=== PATIENT | male | born 1950 | race Caucasian/White ===

== ENCOUNTER 2017-07-17 09:34 | Day surgery (SDC) | payer OTHER ==
[2017-07-17] MEDS ORDERED: D5 LR 1000 ML 1,000 ML IV ONE (09:59)
[2017-07-17] MEDS ORDERED: DIPRIVAN VIAL 20 ML ONE (11:32)
[2017-07-17 13:55] VITALS: BP 118/78
== END 2017-07-17 12:18 | disposition home or self-care (01) ==
LOC: SURG1 09:34
PROVIDERS: ATTEND Internal Medicine Gastroenterology
PROC: 0DJD8ZZ Inspection of Lower Intestinal Tract, Via Natural or Artificial Opening Endoscopic (ICD-10-PCS; principal; 2017-07-17 11:30)
DX: Z12.11 Encounter for screening for malignant neoplasm of colon (principal); K57.30 Diverticulosis of large intestine without perforation or abscess without bleeding; K64.0 First degree hemorrhoids
CPT/HCPCS: A4217; J3490; J7120

== ENCOUNTER 2021-10-26 16:41 | Observation (INO) ==
[2021-10-26 19:51] LABS: BASOPHILS # (AUTO) 0.2 X10^3/uL (0.0-0.1); BASOPHILS % (AUTO) 2.3 % (0.2-1.0); EOSINOPHILS # (AUTO) 0.2 x10^3/uL (0.0-0.2); EOSINOPHILS % (AUTO) 2.9 % (0.9-2.9); HEMATOCRIT 51.4 % (42.0-54.0); HEMOGLOBIN 17.5 g/dL (13.5-18.0); LYMPHOCYTES # (AUTO) 1.4 X10^3/uL (1.3-2.9); LYMPHOCYTES % (AUTO) 19.5 % (21.0-51.0); MEAN CORPUSCULAR HEMOGLOBIN 32.7 pg (27.0-34.0); MEAN CORPUSCULAR VOLUME 96.2 fL (80.0-100.0); MEAN PLATELET VOLUME 7.6 fL (7.4-11.0); MONOCYTES # (AUTO) 0.7 x10^3/uL (0.3-0.8); MONOCYTES % (AUTO) 9.7 % (0.0-13.0); NEUTROPHILS # (AUTO) 4.9 x10^3/uL (2.2-4.8); NEUTROPHILS % (AUTO) 65.6 % (42.0-75.0); RED BLOOD COUNT 5.35 X10^6/uL (4.7-6.0); RED CELL DISTRIBUTION WIDTH 13.5 % (11.6-16.5); WHITE BLOOD COUNT 7.4 X10^3/uL (3.6-10.0)
[2021-10-26 19:56] LABS: ERYTHROCYTE SEDIMENTATION RATE 16 MM/HOUR (0-15)
[2021-10-26 20:03] LABS: ALANINE AMINOTRANSFERASE 25 Units/L (12-78); ALBUMIN 3.8 g/dL (3.4-5.0); ALKALINE PHOSPHATASE 82 Units/L (46-116); ASPARTATE AMINO TRANSFERASE 20 Units/L (15-37); BLOOD UREA NITROGEN 27 mg/dL (7-18); CALCIUM 8.8 mg/dL (8.5-10.1); CARBON DIOXIDE 28.7 mmol/L (21-32); CHLORIDE 104 mmol/L (98-107); COR NA(FOR HYPERGLY) 140 mmol/L (136-145); CREATININE 1.27 mg/dL (0.70-1.30); SODIUM 140 mmol/L (136-145); TOTAL PROTEIN 7.1 g/dL (6.4-8.2); eGFR NON BLACK RACES 59 (>60)
[2021-10-26 20:18] LABS: BILIRUBIN,URINE NEGATIVE (NEGATIVE); BLOOD/HEMOGLOBIN,URINE 1+ (NEGATIVE); GLUCOSE, URINE NEGATIVE (NEGATIVE); KETONES,URINE NEGATIVE (NEGATIVE); LEUKOCYTE ESTERASE ,URINE NEGATIVE (NEGATIVE); NITRITES,URINE NEGATIVE (NEGATIVE); PH,URINE 6.5 (5.0 - 8.0); PROTEIN,URINE NEGATIVE (NEGATIVE); UROBILINOGEN,URINE NORMAL (NORMAL)
[2021-10-26 20:28] LABS: APPEARANCE,URINE CLEAR (CLEAR); COLOR,URINE YELLOW (YELLOW)
[2021-10-26 20:29] LABS: BACTERIA,URINE NEGATIVE /HPF (NEGATIVE); RBC,URINE 0-2 /HPF (0-3); SQUAMOUS EPITHELIAL CELL,UR RARE /HPF (NEGATIVE)
[2021-10-26 20:30] LABS: BAND NEUTROPHILS % 2 % (0-10); PLATELET MORPHOLOGY COMMENT NORMAL (NORMAL); SMUDGE CELLS FEW
[2021-10-26] MEDS: HEPARIN SODIUM IN D5W 25,000 UNITS/500 ML BAG IV PRN (20:30)
[2021-10-26] MEDS: NS 1,000 ML IV 1,000 ML IV SCH (20:33)
[2021-10-26] MEDS ORDERED: HEPARIN SODIUM INJ 5000 UNITS IVP ONE ×2 (21:15→22:00)
[2021-10-27 01:04] VITALS: BMI 30.2
[2021-10-27] MEDS: XANAX PO SCH ×2 (01:35→22:48)
[2021-10-27 02:44] LABS: BASOPHILS # (AUTO) 0.1 X10^3/uL (0.0-0.1); BASOPHILS % (AUTO) 0.9 % (0.2-1.0); EOSINOPHILS # (AUTO) 0.2 x10^3/uL (0.0-0.2); EOSINOPHILS % (AUTO) 3.3 % (0.9-2.9); HEMATOCRIT 48.9 % (42.0-54.0); HEMOGLOBIN 16.6 g/dL (13.5-18.0); LYMPHOCYTES # (AUTO) 1.8 X10^3/uL (1.3-2.9); LYMPHOCYTES % (AUTO) 24.8 % (21.0-51.0); MEAN CORPUSCULAR HEMOGLOBIN 32.6 pg (27.0-34.0); MEAN CORPUSCULAR VOLUME 95.9 fL (80.0-100.0); MEAN PLATELET VOLUME 7.3 fL (7.4-11.0); MONOCYTES # (AUTO) 0.8 x10^3/uL (0.3-0.8); MONOCYTES % (AUTO) 10.6 % (0.0-13.0); NEUTROPHILS # (AUTO) 4.4 x10^3/uL (2.2-4.8); NEUTROPHILS % (AUTO) 60.4 % (42.0-75.0); RED BLOOD COUNT 5.09 X10^6/uL (4.7-6.0); RED CELL DISTRIBUTION WIDTH 13.5 % (11.6-16.5); WHITE BLOOD COUNT 7.2 X10^3/uL (3.6-10.0)
[2021-10-27 02:55] LABS: ALANINE AMINOTRANSFERASE 21 Units/L (12-78); ALBUMIN 3.1 g/dL (3.4-5.0); ALKALINE PHOSPHATASE 77 Units/L (46-116); ASPARTATE AMINO TRANSFERASE 18 Units/L (15-37); BLOOD UREA NITROGEN 26 mg/dL (7-18); CALCIUM 8.2 mg/dL (8.5-10.1); CARBON DIOXIDE 30.5 mmol/L (21-32); CHLORIDE 106 mmol/L (98-107); COR CA(FOR HYPOALB) 8.9 mg/dL (8.5-10.1); COR NA(FOR HYPERGLY) 141 mmol/L (136-145); CREATININE 1.14 mg/dL (0.70-1.30); SODIUM 140 mmol/L (136-145); TOTAL PROTEIN 6.2 g/dL (6.4-8.2); eGFR NON BLACK RACES > 60 (>60)
[2021-10-27] MEDS ORDERED: HEPARIN SODIUM INJ 5000 UNITS ONE (09:03)
--- NOTE | 2021-10-27 10:57 | DR.H&P ---
H&P History & Physical for Day of: H&P Date: 10/27/21 Chief Complaint Chief Complaint: left leg swelling and SOB Allergies Allergies Allergy/AdvReac Type Severity Reaction Status Date / Time No Known Drug Allergies Allergy Verified 07/17/17 10:23 History of Present Illness History of Present Illness: Mr Pascal is a 71y/o male with no pertinent PMH was seen outpatient for left leg pain and swelling along with worsening dyspnea. He was sent for left leg U/S and CTA-chest. U/S showed left leg DVT in superficial, poplitial and post tibial veins. CTA showed RUL and RLL pulmonary embolus. Patient was directly admitted for treatment. He was started on heparin drip. He states he is feeling better. He still has dyspnea on exertion. He is currently on room air with sats > 90%. He denies any recent immobility, road trip or flight. He is fairly active at home. He was exposed to someone with covid few weeks ago but did not have any signs and was not tested. He reports having left leg swelling for almost a month but got worse yesterday. Labs/imaging revered U/S and CTA results scanned in chart Plan: continue heparin drip as per protocol, monitor O2 sats, Oxygen prn to keep sats>92%. Monitor for signs of bleeding. Follow pending labs. Resume home medic ations. Monitor AM labs/imaging. Social History Does patient currently use any type of tobacco product: No Have you used tobacco products in the last 12 months: No Type of Tobacco Use: None Alcohol Use: None Drug Use: None Medications Home Medications: No Known Drug Allergies Allergy (Verified 07/17/17 10:23) CONTINUE taking the following medications alprazolam 0.5 mg tablet 0.25 tab PO QHS SLEEP 10/26/21 [History] testosterone cypionate 200 mg/mL intramuscular oil 0.5 ml IM QWEEK 10/26/21 [History] Labs Result Diagrams: 10/27/21 02:30 10/27/21 02:30 Labs: Laboratory WBC 7.2 X10^3/uL (3.6-10.0) 10/27/21 02:30 RBC 5.09 X10^6/uL (4.7-6.0) 10/27/21 02:30 Hgb 16.6 g/dL (13.5-18.0) 10/27/21 02:30 Hct 48.9 % (42.0-54.0) 10/27/21 02:30 MCV 95.9 fL (80.0-100.0) 10/27/21 02:30 MCH 32.6 pg (27.0-34.0) 10/27/21 02:30 MCHC 34.0 g/dL (33.0-35.0) 10/27/21 02:30 RDW 13.5 % (11.6-16.5) 10/27/21 02:30 Plt Count 135 X10^3/uL (150.0-450.0) L 10/27/21 02:30 Plt Count Comment Decreased (ADEQUATE) 10/26/21 19:30 MPV 7.3 fL (7.4-11.0) L 10/27/21 02:30 Neut % (Auto) 60.4 % (42.0-75.0) 10/27/21 02:30 Lymph % (Auto) 24.8 % (21.0-51.0) 10/27/21 02:30 [place] % (Auto) 10.6 % (0.0-13.0) 10/27/21 02:30 Eos % (Auto) 3.3 % (0.9-2.9) H 10/27/21 02:30 Baso % (Auto) 0.9 % (0.2-1.0) 10/27/21 02:30 Neut # (Auto) 4.4 x10^3/uL (2.2-4.8) 10/27/21 02:30 Lymph # (Auto) 1.8 X10^3/uL (1.3-2.9) 10/27/21 02:30 [place] # (Auto) 0.8 x10^3/uL (0.3-0.8) 10/27/21 02:30 Eos # (Auto) 0.2 x10^3/uL (0.0-0.2) 10/27/21 02:30 Baso # (Auto) 0.1 X10^3/uL (0.0-0.1) 10/27/21 02:30 Absolute Nucleated RBC 0.0 /100WBC 10/27/21 02:30 Total Counted 100 10/26/21 19:30 Neutrophils % (Manual) 63 % (39-76) 10/26/21 19:30 Band Neutrophils % 2 % (0-10) 10/26/21 19:30 Lymphocytes % (Manual) 27 % (13-43) 10/26/21 19:30 Monocytes % (Manual) 7 % (4-9) 10/26/21 19:30 Eosinophils % (Manual) 1 % (0-6) 10/26/21 19:30 Atypical Lymphocytes Moderate 10/26/21 19:30 Smudge Cells Few 10/26/21 19:30 Plt Morphology Comment Normal (NORMAL) 10/26/21 19:30 RBC Morphology Normal (NORMAL) 10/26/21 19:30 ESR 16 MM/HOUR (0-15) H 10/26/21 19:30 PT 14.1 SECONDS (11.8-14.3) 10/26/21 19:30 INR Target Range - 10/26/21 19:30 INR 1.12 (0.8-1.3) 10/26/21 19:30 APTT 61.7 SECONDS (22.9-36.5) H 10/27/21 08:39 PTT Comment - 10/27/21 08:39 D-Dimer 9.78 ug/ml (0.0-0.57) H* 10/26/21 19:30 Sodium 140 mmol/L (136-145) 10/27/21 02:30 Corrected Sodium 141 mmol/L (136-145) 10/27/21 02:30 Potassium 3.9 mmol/L (3.5-5.1) 10/27/21 02:30 Chloride 106 mmol/L (98-107) 10/27/21 02:30 Carbon Dioxide 30.5 mmol/L (21-32) 10/27/21 02:30 BUN 26 mg/dL (7-18) H 10/27/21 02:30 Creatinine 1.14 mg/dL (0.70-1.30) 10/27/21 02:30 Est GFR (MDRD) Af Amer > 60 (>60) 10/27/21 02:30 Est GFR (MDRD) Non-Af > 60 (>60) 10/27/21 02:30 Glucose 142 mg/dL (65-99) H 10/27/21 02:30 Calcium 8.2 mg/dL (8.5-10.1) L 10/27/21 02:30 Corrected Calcium 8.9 mg/dL (8.5-10.1) 10/27/21 02:30 Total Bilirubin 0.50 mg/dL (0.2-1.0) 10/27/21 02:30 AST 18 Units/L (15-37) 10/27/21 02:30 ALT 21 Units/L (12-78) 10/27/21 02:30 Alkaline Phosphatase 77 Units/L (46-116) 10/27/21 02:30 C-Reactive Protein 18.70 mg/L (0-3.0) H 10/26/21 19:30 Total Protein 6.2 g/dL (6.4-8.2) L 10/27/21 02:30 Albumin 3.1 g/dL (3.4-5.0) L 10/27/21 02:30 Globulin 3.1 g/dL (2.5-4.5) 10/27/21 02:30 Albumin/Globulin Ratio 1.0 Ratio (1.1-2.1) L 10/27/21 02:30 Specimen Type Clean catch urine 10/26/21 20:05 Urine Color Yellow (YELLOW) 10/26/21 20:05 Urine Appearance Clear (CLEAR) 10/26/21 20:05 Urine pH 6.5 (5.0 - 8.0) 10/26/21 20:05 Ur Specific [place] 1.015 (1.000-1.030) 10/26/21 20:05 Urine Protein Negative (NEGATIVE) 10/26/21 20:05 Urine Glucose (UA) Negative (NEGATIVE) 10/26/21 20:05 Urine Ketones Negative (NEGATIVE) 10/26/21 20:05 Urine Blood 1+ (NEGATIVE) 10/26/21 20:05 Urine Nitrite Negative (NEGATIVE) 10/26/21 20:05 Urine Bilirubin Negative (NEGATIVE) 10/26/21 20:05 Urine Urobilinogen Normal (NORMAL) 10/26/21 20:05 Ur Leukocyte Esterase Negative (NEGATIVE) 10/26/21 20:05 Urine RBC 0-2 /HPF (0-3) 10/26/21 20:05 Urine WBC None seen /HPF (0-5) 10/26/21 20:05 Ur Squamous Epith Cells Rare /HPF (NEGATIVE) 10/26/21 20:05 Urine Bacteria Negative /HPF (NEGATIVE) 10/26/21 20:05 Ur Culture Indicated? No/not indicated 10/26/21 20:05 Review of Systems Constitutional: Weakness Eyes: No Symptoms Reported ENT: No Symptoms Reported Respiratory: Shortness of Breath and SOB with Excertion Cardiovascular: Edema (left leg ) Gastrointestinal: No Symptoms Reported Genitourinary: No Symptoms Reported Musculoskeletal: Leg Pain Skin: No Symptoms Reported Neurological: No Symptoms Reported Physical Exam Vital Signs: Temperature 98.0 F Pulse Rate 67 Respiratory Rate 18 Blood Pressure 132/75 O2 Sat by Pulse Oximetry 92 Oriented: Normal Eyes: Normal Ear: Normal Nose: Normal Throat: Normal Respiratory: Diminished Throughout Cardiovascular: Normal Auscultation: Bowel Sounds: Normal Palpation: Normal Tenderness: Normal Skin: Normal Musculoskeletal: Left and Leg (mild leg swelling, some tenderness in the calf area ) Psychiatric: Normal Mood Description: Calm Affect: Normal Speech Pattern: Clear and Appropriate Assessment/Plan (1) Left leg DVT: Status: Acute (2) Pulmonary embolism: Status: Acute (3) Thrombocytopenia: Status: Acute (4) Insomnia: Status: Acute Review H&P Reviewed: Yes Patient was examined?: Yes
[2021-10-27] MEDS: HEPARIN SODIUM IN D5W 25,000 UNITS/500 ML BAG IV PRN (15:49)
[2021-10-27] MEDS: NS 1,000 ML IV 1,000 ML IV SCH ×2 (15:49→22:48)
[2021-10-28 05:13] LABS: BASOPHILS # (AUTO) 0.1 X10^3/uL (0.0-0.1); BASOPHILS % (AUTO) 0.8 % (0.2-1.0); EOSINOPHILS # (AUTO) 0.2 x10^3/uL (0.0-0.2); HEMATOCRIT 48.4 % (42.0-54.0); HEMOGLOBIN 16.5 g/dL (13.5-18.0); LYMPHOCYTES # (AUTO) 1.8 X10^3/uL (1.3-2.9); LYMPHOCYTES % (AUTO) 25.7 % (21.0-51.0); MEAN CORPUSCULAR HEMOGLOBIN 32.8 pg (27.0-34.0); MEAN CORPUSCULAR HGB CONC 34.2 g/dL (33.0-35.0); MEAN CORPUSCULAR VOLUME 96.1 fL (80.0-100.0); MEAN PLATELET VOLUME 7.5 fL (7.4-11.0); MONOCYTES # (AUTO) 0.7 x10^3/uL (0.3-0.8); MONOCYTES % (AUTO) 9.4 % (0.0-13.0); NEUTROPHILS # (AUTO) 4.4 x10^3/uL (2.2-4.8); NEUTROPHILS % (AUTO) 61.1 % (42.0-75.0); RED BLOOD COUNT 5.03 X10^6/uL (4.7-6.0); RED CELL DISTRIBUTION WIDTH 13.8 % (11.6-16.5); WHITE BLOOD COUNT 7.1 X10^3/uL (3.6-10.0)
[2021-10-28 05:20] LABS: ALANINE AMINOTRANSFERASE 18 Units/L (12-78); ALBUMIN 2.9 g/dL (3.4-5.0); ALKALINE PHOSPHATASE 64 Units/L (46-116); ASPARTATE AMINO TRANSFERASE 18 Units/L (15-37); BLOOD UREA NITROGEN 15 mg/dL (7-18); CALCIUM 8.1 mg/dL (8.5-10.1); CARBON DIOXIDE 26.2 mmol/L (21-32); CHLORIDE 105 mmol/L (98-107); CREATININE 1.09 mg/dL (0.70-1.30); SODIUM 139 mmol/L (136-145); eGFR NON BLACK RACES > 60 (>60)
[2021-10-28] MEDS: NS 1,000 ML IV 1,000 ML IV SCH (10:30)
[2021-10-28] MEDS: HEPARIN SODIUM IN D5W 25,000 UNITS/500 ML BAG IV PRN (10:30)
--- NOTE | 2021-10-28 10:40 | PCM.PROG ---
Progress Note Progress Note for Day of Date of Exam: 10/28/21 Subjective Subjective: Patient seen at bedside, no events overnight. He has been doing well. He has been ambulating in the room. He reports improvement in dyspnea and leg pain. Denies N/V/D. Labs/imaging reviewed: Plt 141 Plan: continue heparin drip for DVT and PE. Titrate as per protocol. Can transition to PO NOAC tomorrow. Continue home medications. Hypercoagulation panel pending. Monitor AM labs/imaging. Past Medical Family Social History Allergies: Allergies No Known Drug Allergies Allergy (Verified 07/17/17 10:23) Vital Signs and I&O's Vital Signs: Temperature 98.2 F Pulse Rate 61 Respiratory Rate 12 Blood Pressure 107/58 O2 Sat by Pulse Oximetry 91 Intake and Output: Intake & Output 10/25/21 10/26/21 10/27/21 10/28/21 23:59 23:59 23:59 23:59 Intake Total 720 / 720 3915 / 3915 930 / 930 Balance 720 / 720 3915 / 3915 930 / 930 Physical Exam Oriented: Normal Eyes: Normal Ear: Normal Nose: Normal Throat: Normal Cardiovascular: Normal Auscultation: Bowel Sounds: Normal Tenderness: Normal Skin: Normal Musculoskeletal: Left and Leg (improvment in swelling, non-tender) Psychiatric: Normal Mood Description: Calm Affect: Normal Speech Pattern: Clear and Appropriate Laboratory and Diagnostics Result Diagrams: 10/28/21 04:50 10/28/21 04:50 Labs: Laboratory WBC 7.1 X10^3/uL (3.6-10.0) 10/28/21 04:50 RBC 5.03 X10^6/uL (4.7-6.0) 10/28/21 04:50 Hgb 16.5 g/dL (13.5-18.0) 10/28/21 04:50 Hct 48.4 % (42.0-54.0) 10/28/21 04:50 MCV 96.1 fL (80.0-100.0) 10/28/21 04:50 MCH 32.8 pg (27.0-34.0) 10/28/21 04:50 MCHC 34.2 g/dL (33.0-35.0) 10/28/21 04:50 RDW 13.8 % (11.6-16.5) 10/28/21 04:50 Plt Count 141 X10^3/uL (150.0-450.0) L 10/28/21 04:50 Plt Count Comment Decreased (ADEQUATE) 10/26/21 19:30 MPV 7.5 fL (7.4-11.0) 10/28/21 04:50 Neut % (Auto) 61.1 % (42.0-75.0) 10/28/21 04:50 Lymph % (Auto) 25.7 % (21.0-51.0) 10/28/21 04:50 [place] % (Auto) 9.4 % (0.0-13.0) 10/28/21 04:50 Eos % (Auto) 3.0 % (0.9-2.9) H 10/28/21 04:50 Baso % (Auto) 0.8 % (0.2-1.0) 10/28/21 04:50 Neut # (Auto) 4.4 x10^3/uL (2.2-4.8) 10/28/21 04:50 Lymph # (Auto) 1.8 X10^3/uL (1.3-2.9) 10/28/21 04:50 [place] # (Auto) 0.7 x10^3/uL (0.3-0.8) 10/28/21 04:50 Eos # (Auto) 0.2 x10^3/uL (0.0-0.2) 10/28/21 04:50 Baso # (Auto) 0.1 X10^3/uL (0.0-0.1) 10/28/21 04:50 Absolute Nucleated RBC 0.0 /100WBC 10/28/21 04:50 Total Counted 100 10/26/21 19:30 Neutrophils % (Manual) 63 % (39-76) 10/26/21 19:30 Band Neutrophils % 2 % (0-10) 10/26/21 19:30 Lymphocytes % (Manual) 27 % (13-43) 10/26/21 19:30 Monocytes % (Manual) 7 % (4-9) 10/26/21 19:30 Eosinophils % (Manual) 1 % (0-6) 10/26/21 19:30 Atypical Lymphocytes Moderate 10/26/21 19:30 Smudge Cells Few 10/26/21 19:30 Plt Morphology Comment Normal (NORMAL) 10/26/21 19:30 RBC Morphology Normal (NORMAL) 10/26/21 19:30 ESR 16 MM/HOUR (0-15) H 10/26/21 19:30 PT 14.1 SECONDS (11.8-14.3) 10/26/21 19:30 INR Target Range - 10/26/21 19:30 INR 1.12 (0.8-1.3) 10/26/21 19:30 APTT 87.1 SECONDS (22.9-36.5) H 10/28/21 04:50 PTT Comment - 10/28/21 04:50 D-Dimer 9.78 ug/ml (0.0-0.57) H* 10/26/21 19:30 Sodium 139 mmol/L (136-145) 10/28/21 04:50 Corrected Sodium TNP 10/28/21 04:50 Potassium 4.0 mmol/L (3.5-5.1) 10/28/21 04:50 Chloride 105 mmol/L (98-107) 10/28/21 04:50 Carbon Dioxide 26.2 mmol/L (21-32) 10/28/21 04:50 BUN 15 mg/dL (7-18) 10/28/21 04:50 Creatinine 1.09 mg/dL (0.70-1.30) 10/28/21 04:50 Est GFR (MDRD) Af Amer > 60 (>60) 10/28/21 04:50 Est GFR (MDRD) Non-Af > 60 (>60) 10/28/21 04:50 Glucose 106 mg/dL (65-99) H 10/28/21 04:50 Hemoglobin A1c 5.5 % 10/28/21 04:50 Calcium 8.1 mg/dL (8.5-10.1) L 10/28/21 04:50 Corrected Calcium 9.0 mg/dL (8.5-10.1) 10/28/21 04:50 Total Bilirubin 0.50 mg/dL (0.2-1.0) 10/28/21 04:50 AST 18 Units/L (15-37) 10/28/21 04:50 ALT 18 Units/L (12-78) 10/28/21 04:50 Alkaline Phosphatase 64 Units/L (46-116) 10/28/21 04:50 C-Reactive Protein 18.70 mg/L (0-3.0) H 10/26/21 19:30 Total Protein 6.0 g/dL (6.4-8.2) L 10/28/21 04:50 Albumin 2.9 g/dL (3.4-5.0) L 10/28/21 04:50 Globulin 3.1 g/dL (2.5-4.5) 10/28/21 04:50 Albumin/Globulin Ratio 0.9 Ratio (1.1-2.1) L 10/28/21 04:50 Specimen Type Clean catch urine 10/26/21 20:05 Urine Color Yellow (YELLOW) 10/26/21 20:05 Urine Appearance Clear (CLEAR) 10/26/21 20:05 Urine pH 6.5 (5.0 - 8.0) 10/26/21 20:05 Ur Specific [place] 1.015 (1.000-1.030) 10/26/21 20:05 Urine Protein Negative (NEGATIVE) 10/26/21 20:05 Urine Glucose (UA) Negative (NEGATIVE) 10/26/21 20:05 Urine Ketones Negative (NEGATIVE) 10/26/21 20:05 Urine Blood 1+ (NEGATIVE) 10/26/21 20:05 Urine Nitrite Negative (NEGATIVE) 10/26/21 20:05 Urine Bilirubin Negative (NEGATIVE) 10/26/21 20:05 Urine Urobilinogen Normal (NORMAL) 10/26/21 20:05 Ur Leukocyte Esterase Negative (NEGATIVE) 10/26/21 20:05 Urine RBC 0-2 /HPF (0-3) 10/26/21 20:05 Urine WBC None seen /HPF (0-5) 10/26/21 20:05 Ur Squamous Epith Cells Rare /HPF (NEGATIVE) 10/26/21 20:05 Urine Bacteria Negative /HPF (NEGATIVE) 10/26/21 20:05 Ur Culture Indicated? No/not indicated 10/26/21 20:05 Plan (1) Left leg DVT: Status: Acute (2) Pulmonary embolism: Status: Acute (3) Thrombocytopenia: Status: Acute (4) Insomnia: Status: Acute
[2021-10-29] MEDS: XANAX PO SCH (02:56)
[2021-10-29] MEDS: HEPARIN SODIUM IN D5W 25,000 UNITS/500 ML BAG IV PRN (02:56)
[2021-10-29] MEDS: NS 1,000 ML IV 1,000 ML IV SCH ×3 (02:56→13:56)
[2021-10-29 05:39] LABS: BASOPHILS # (AUTO) 0.1 X10^3/uL (0.0-0.1); BASOPHILS % (AUTO) 0.9 % (0.2-1.0); EOSINOPHILS # (AUTO) 0.2 x10^3/uL (0.0-0.2); EOSINOPHILS % (AUTO) 2.7 % (0.9-2.9); HEMATOCRIT 47.8 % (42.0-54.0); HEMOGLOBIN 16.2 g/dL (13.5-18.0); LYMPHOCYTES # (AUTO) 1.7 X10^3/uL (1.3-2.9); MEAN CORPUSCULAR HEMOGLOBIN 32.4 pg (27.0-34.0); MEAN CORPUSCULAR HGB CONC 33.9 g/dL (33.0-35.0); MEAN CORPUSCULAR VOLUME 95.6 fL (80.0-100.0); MEAN PLATELET VOLUME 7.7 fL (7.4-11.0); MONOCYTES # (AUTO) 0.6 x10^3/uL (0.3-0.8); MONOCYTES % (AUTO) 9.1 % (0.0-13.0); NEUTROPHILS # (AUTO) 4.4 x10^3/uL (2.2-4.8); NEUTROPHILS % (AUTO) 62.3 % (42.0-75.0); RED CELL DISTRIBUTION WIDTH 13.6 % (11.6-16.5)
[2021-10-29 05:45] LABS: ALANINE AMINOTRANSFERASE 20 Units/L (12-78); ALKALINE PHOSPHATASE 67 Units/L (46-116); ASPARTATE AMINO TRANSFERASE 21 Units/L (15-37); BLOOD UREA NITROGEN 13 mg/dL (7-18); CALCIUM 8.3 mg/dL (8.5-10.1); CARBON DIOXIDE 26.7 mmol/L (21-32); CHLORIDE 104 mmol/L (98-107); COR CA(FOR HYPOALB) 9.1 mg/dL (8.5-10.1); CREATININE 1.03 mg/dL (0.70-1.30); SODIUM 138 mmol/L (136-145); eGFR NON BLACK RACES > 60 (>60)
--- NOTE | 2021-10-29 10:08 | PCM.PROG ---
Progress Note - Progress Note for Day of Date of Exam: 10/29/21 - Subjective Subjective: IS CURRENTLY INPATIENT STATUS FOR TREATMENT OF OCCLUSIVE DVT OF THE LEFT SUPERFICIAL FEMORAL VEIN THROUGH THE POSTERIOR TIBIAL VEIN AND ALSO A NONOCCLUSIVE PE IN THE POSTERIOR/MEDIAL PULMONARY ARTERIES TO THE RIGHT LOWER LOBE IN ADDITION TO OCCLUSIVE AND NONOCCLUSIVE PE IN THE RIGHT UPPER LOBE. HE WAS ADMITTED TO THE INTENSIVE CARE UNIT ON A HEPARIN DRIP. TODAY, HE IS ALERT AND ORIENTED, LYING IN BED ON MORNING ROUNDS. HE COMPLAINS OF INTERMITTENT SHORTNESS OF BREATH AND LEFT LEG PAIN. ON EXAMINATION, HEART IS REGULAR IN RATE AND RHYTHM. BILATERAL LUNGS ARE CLEAR TO AUSCULTATION. SOME MILD SWELLING IS NOTED TO THE LEFT LEG. IT IS NON-TENDER TODAY. HIS VITALS THIS MORNING ARE: 97.8-64-21-93%-153/78. LABS WERE OBTAINED. WBC 7.0, HGB 16.2, HCT 47.8, SODIUM 138, POTASSIUM 4.2, BUN 13, CREATININE 1.03, GLUCOSE 96, CALCIUM 8.3, TOTAL PROTEIN 6.0, ALBUMIN 3.0. HYPERCOAGULABLE PANEL IS PENDING. HE IS CURRENTLY RECEIVING NORMAL SALINE AT 80 ML/HR, HEPARIN PROTOCOL IV, AND XANAX 0.125MG PO HS. TODAY, WE WILL OBTAIN AN ECHOCARDIOGRAM. OTHERWISE, WE WILL CONTINUE WITH CURRENT PLAN OF CARE TODAY. WE PLAN TO FOLLOW UP WITH AM LABS AND CONTINUE TO MONITOR. TIME SPENT ON CLINICAL ASSESSMENT, REVIWING LABS AND IMAGING, DECISION MAKING, AND DOCUMENTATION GREATER THAN 75 MINUTES. - Past Medical Family Social History Past Med/Fam/Surg Hx: No changes since H&P Allergies: Allergies No Known Drug Allergies Allergy (Verified 07/17/17 10:23) - Review of Systems ROS: No change since H&P - Vital Signs and I&O's Vital Signs: Temperature 97.8 F Pulse Rate 67 Respiratory Rate 30 Blood Pressure 146/80 O2 Sat by Pulse Oximetry 93 Intake and Output: Intake & Output 10/26/21 10/27/21 10/28/21 10/29/21 11:59 11:59 11:59 11:59 Intake Total 1843 / 1843 4072 / 4072 2886 / 2886 Balance 1843 / 1843 4072 / 4072 2886 / 2886 - Physical Exam Oriented: Normal Eyes: Normal Ear: Normal Nose: Normal Throat: Normal Respiratory: Normal Cardiovascular: Normal Auscultation: Bowel Sounds: Normal Palpation: Normal Tenderness: Normal Skin: Normal Musculoskeletal: Left, Leg (improvment in swelling, non-tender) Psychiatric: Normal Mood Description: Calm Affect: Normal Speech Pattern: Clear, Appropriate - Laboratory and Diagnostics Result Diagrams: 10/29/21 05:05 10/29/21 05:05 Labs: Laboratory WBC 7.0 X10^3/uL (3.6-10.0) 10/29/21 05:05 RBC 5.00 X10^6/uL (4.7-6.0) 10/29/21 05:05 Hgb 16.2 g/dL (13.5-18.0) 10/29/21 05:05 Hct 47.8 % (42.0-54.0) 10/29/21 05:05 MCV 95.6 fL (80.0-100.0) 10/29/21 05:05 MCH 32.4 pg (27.0-34.0) 10/29/21 05:05 MCHC 33.9 g/dL (33.0-35.0) 10/29/21 05:05 RDW 13.6 % (11.6-16.5) 10/29/21 05:05 Plt Count 152 X10^3/uL (150.0-450.0) 10/29/21 05:05 Plt Count Comment Decreased (ADEQUATE) 10/26/21 19:30 MPV 7.7 fL (7.4-11.0) 10/29/21 05:05 Neut % (Auto) 62.3 % (42.0-75.0) 10/29/21 05:05 Lymph % (Auto) 25.0 % (21.0-51.0) 10/29/21 05:05 [place] % (Auto) 9.1 % (0.0-13.0) 10/29/21 05:05 Eos % (Auto) 2.7 % (0.9-2.9) 10/29/21 05:05 Baso % (Auto) 0.9 % (0.2-1.0) 10/29/21 05:05 Neut # (Auto) 4.4 x10^3/uL (2.2-4.8) 10/29/21 05:05 Lymph # (Auto) 1.7 X10^3/uL (1.3-2.9) 10/29/21 05:05 [place] # (Auto) 0.6 x10^3/uL (0.3-0.8) 10/29/21 05:05 Eos # (Auto) 0.2 x10^3/uL (0.0-0.2) 10/29/21 05:05 Baso # (Auto) 0.1 X10^3/uL (0.0-0.1) 10/29/21 05:05 Absolute Nucleated RBC 0.0 /100WBC 10/29/21 05:05 Total Counted 100 10/26/21 19:30 Neutrophils % (Manual) 63 % (39-76) 10/26/21 19:30 Band Neutrophils % 2 % (0-10) 10/26/21 19:30 Lymphocytes % (Manual) 27 % (13-43) 10/26/21 19:30 Monocytes % (Manual) 7 % (4-9) 10/26/21 19:30 Eosinophils % (Manual) 1 % (0-6) 10/26/21 19:30 Atypical Lymphocytes Moderate 10/26/21 19:30 Smudge Cells Few 10/26/21 19:30 Plt Morphology Comment Normal (NORMAL) 10/26/21 19:30 RBC Morphology Normal (NORMAL) 10/26/21 19:30 ESR 16 MM/HOUR (0-15) H 10/26/21 19:30 PT 14.1 SECONDS (11.8-14.3) 10/26/21 19:30 INR Target Range - 10/26/21 19:30 INR 1.12 (0.8-1.3) 10/26/21 19:30 APTT 72.7 SECONDS (22.9-36.5) H 10/29/21 05:05 PTT Comment - 10/29/21 05:05 D-Dimer 9.78 ug/ml (0.0-0.57) H* 10/26/21 19:30 Sodium 138 mmol/L (136-145) 10/29/21 05:05 Corrected Sodium TNP 10/29/21 05:05 Potassium 4.2 mmol/L (3.5-5.1) 10/29/21 05:05 Chloride 104 mmol/L (98-107) 10/29/21 05:05 Carbon Dioxide 26.7 mmol/L (21-32) 10/29/21 05:05 BUN 13 mg/dL (7-18) 10/29/21 05:05 Creatinine 1.03 mg/dL (0.70-1.30) 10/29/21 05:05 Est GFR (MDRD) Af Amer > 60 (>60) 10/29/21 05:05 Est GFR (MDRD) Non-Af > 60 (>60) 10/29/21 05:05 Glucose 96 mg/dL (65-99) 10/29/21 05:05 Hemoglobin A1c 5.5 % 10/28/21 04:50 Calcium 8.3 mg/dL (8.5-10.1) L 10/29/21 05:05 Corrected Calcium 9.1 mg/dL (8.5-10.1) 10/29/21 05:05 Total Bilirubin 0.60 mg/dL (0.2-1.0) 10/29/21 05:05 AST 21 Units/L (15-37) 10/29/21 05:05 ALT 20 Units/L (12-78) 10/29/21 05:05 Alkaline Phosphatase 67 Units/L (46-116) 10/29/21 05:05 C-Reactive Protein 18.70 mg/L (0-3.0) H 10/26/21 19:30 Total Protein 6.0 g/dL (6.4-8.2) L 10/29/21 05:05 Albumin 3.0 g/dL (3.4-5.0) L 10/29/21 05:05 Globulin 3.0 g/dL (2.5-4.5) 10/29/21 05:05 Albumin/Globulin Ratio 1.0 Ratio (1.1-2.1) L 10/29/21 05:05 Specimen Type Clean catch urine 10/26/21 20:05 Urine Color Yellow (YELLOW) 10/26/21 20:05 Urine Appearance Clear (CLEAR) 10/26/21 20:05 Urine pH 6.5 (5.0 - 8.0) 10/26/21 20:05 Ur Specific [place] 1.015 (1.000-1.030) 10/26/21 20:05 Urine Protein Negative (NEGATIVE) 10/26/21 20:05 Urine Glucose (UA) Negative (NEGATIVE) 10/26/21 20:05 Urine Ketones Negative (NEGATIVE) 10/26/21 20:05 Urine Blood 1+ (NEGATIVE) 10/26/21 20:05 Urine Nitrite Negative (NEGATIVE) 10/26/21 20:05 Urine Bilirubin Negative (NEGATIVE) 10/26/21 20:05 Urine Urobilinogen Normal (NORMAL) 10/26/21 20:05 Ur Leukocyte Esterase Negative (NEGATIVE) 10/26/21 20:05 Urine RBC 0-2 /HPF (0-3) 10/26/21 20:05 Urine WBC None seen /HPF (0-5) 10/26/21 20:05 Ur Squamous Epith Cells Rare /HPF (NEGATIVE) 10/26/21 20:05 Urine Bacteria Negative /HPF (NEGATIVE) 10/26/21 20:05 Ur Culture Indicated? No/not indicated 10/26/21 20:05 SARS-CoV-2 (PCR) Negative (NEGATIVE) 10/28/21 17:55 - Plan (1) Pulmonary embolism Status: Acute Qualifiers: Pulmonary embolism type: unspecified Chronicity: acute Acute cor pulmo nale presence: unspecified Qualified Code(s): I26.99 - Other pulmonary embolism without acute cor pulmonale Plan: NORMAL SALINE AT 80 ML/HR, HEPARIN IV DRIP, HYPERCOAG PANEL PENDING, OBTAIN AN ECHO. (2) Left leg DVT Status: Acute Qualifiers: Affected thrombotic vein of extremity: femoral Chronicity: acute Qualified Code(s): I82.412 - Acute embolism and thrombosis of left femoral vein (3) Thrombocytopenia Status: Acute (4) Insomnia Status: Acute Qualifiers: Insomnia type: primary Qualified Code(s): F51.01 - Primary insomnia
[2021-10-29] MEDS ORDERED: LOVENOX INJ 100 MG SYR SC NR (17:00)
[2021-10-29 17:11] VITALS: BP 136/79
[2021-10-29] MEDS ORDERED: COUMADIN TAB 5 MG (JANTOVEN) PO ONE (17:14)
[2021-10-31 11:49] LABS: ANTI-NUCLEAR ANTIBODY TEST None Detected (None Detected)
[2021-11-01 06:14] LABS: PROTEIN C ACTIVITY 112 % (83-168)
[2021-11-05 06:15] LABS: PROTHROMBIN G20210A Negative
== END 2021-10-29 17:30 | disposition home or self-care (01) ==
LOC: ICU 18:00 → INTOOBSV 18:00
PROVIDERS: ADMIT Internal Medicine; ATTEND Internal Medicine
DX: D69.6 Thrombocytopenia, unspecified; R06.09 Other forms of dyspnea; D68.9 Coagulation defect, unspecified; Z20.822 Contact with and (suspected) exposure to COVID-19; I82.432 Acute embolism and thrombosis of left popliteal vein; R60.0 Localized edema; I82.412 Acute embolism and thrombosis of left femoral vein; I26.99 Other pulmonary embolism without acute cor pulmonale; M79.605 Pain in left leg; I82.442 Acute embolism and thrombosis of left tibial vein; F51.01 Primary insomnia